=== PATIENT | female | born 1960 | race African-American/Black ===

== ENCOUNTER 2016-04-02 14:53 | Inpatient (IN) | payer OTHER ==
[~2016-04-02] VITALS: Ht 182.9 cm; Wt 76.6 kg
[2016-04-02] MEDS ORDERED: ACETAMINOPHEN 325 MG TAB ONE (15:38)
[2016-04-02] MEDS ORDERED: SODIUM CHLORIDE 0.9% 1,000 ML ONE ×2 (17:43→21:11)
[2016-04-02] MEDS ORDERED: Ibuprofen 600 MG TAB ONE (17:51)
[2016-04-02] MEDS ORDERED: CEFTRIAXONE 1 GM VIAL ONE (18:40)
[2016-04-02] MEDS ORDERED: SODIUM CHLORIDE 0.9% 100 ML IV ONE (18:41)
[2016-04-02] MEDS ORDERED: MAG HYDROX 30 ML UDC PO PRN (23:40)
[2016-04-02] MEDS ORDERED: SALINE FLUSH 10 ML FLUSH PRN (23:40)
[2016-04-02] MEDS ORDERED: BISACODYL EC 5 MG TAB PO PRN (23:40)
[2016-04-02] MEDS ORDERED: ALU/MAG/SIM 30 ML UDC PO PRN (23:40)
[2016-04-02] MEDS ORDERED: BISACODYL 10 MG SUPP RECTAL PRN (23:40)
[2016-04-03] VITALS (8 sets, daily range): BP systolic 94–133; RESP 16; TEMP 97.8–99.5; Ht 182.9 cm; Wt 76.6 kg
[2016-04-03] MEDS: SODIUM CHLORIDE 0.9% 1,000 ML IV SCH ×2 (02:24→23:44)
[2016-04-03] MEDS: SODIUM CHLORIDE 0.9% FLUSH BAG 500 ML IV SCH ×2 (06:00→23:34)
[2016-04-03] MEDS: SALINE FLUSH 10 ML FLUSH SCH ×2 (08:04→20:00)
[2016-04-03] MEDS: FAMOTIDINE 20 MG INJ IV SCH ×2 (08:04→20:22)
[2016-04-03] MEDS: ENOXAPARIN 30 MG/0.3 ML SYR SUBQ SCH (08:05)
[2016-04-03] MEDS: ACETAMINOPHEN 325 MG TAB PO PRN ×3 (08:28→23:45)
[2016-04-03] MEDS ORDERED: MISSING DOSE XX ONE (17:00)
[2016-04-03] MEDS: CEFTRIAXONE 1 GM in SODIUM CHLORIDE 0.9% 50 ML IV SCH (17:12)
[2016-04-03] MEDS: AZITHROMYCIN 500 MG in SODIUM CHLORIDE 0.9% 250 ML IV SCH (17:48)
[2016-04-04] VITALS (8 sets, daily range): BP systolic 118–172; RESP 16; TEMP 98–100.3
[2016-04-04] MEDS: SODIUM CHLORIDE 0.9% 1,000 ML IV SCH (06:26)
[2016-04-04] MEDS: FAMOTIDINE 20 MG INJ IV SCH ×2 (08:12→19:38)
[2016-04-04] MEDS: SALINE FLUSH 10 ML FLUSH SCH ×2 (08:12→19:13)
[2016-04-04] MEDS: CEFTRIAXONE 1 GM in SODIUM CHLORIDE 0.9% 50 ML IV SCH (08:13)
[2016-04-04] MEDS: ACETAMINOPHEN 325 MG TAB PO PRN ×3 (08:13→23:35)
[2016-04-04] MEDS: ENOXAPARIN 30 MG/0.3 ML SYR SUBQ SCH (08:15)
[2016-04-04] MEDS: AZITHROMYCIN 500 MG in SODIUM CHLORIDE 0.9% 250 ML IV SCH (09:09)
[2016-04-04] MEDS: SODIUM CHLORIDE 0.9% FLUSH BAG 500 ML IV SCH (19:39)
[2016-04-05] MEDS: SODIUM CHLORIDE 0.9% 1,000 ML IV SCH ×3 (02:07→20:04)
[2016-04-05 04:19] VITALS: BP_SYST 136; RESP 16; TEMP 100.1
[2016-04-05 07:29] VITALS: BP_SYST 128; RESP 16; TEMP 99.3
[2016-04-05] MEDS: SALINE FLUSH 10 ML FLUSH SCH ×2 (08:00→20:05)
[2016-04-05] MEDS: CEFTRIAXONE 1 GM in SODIUM CHLORIDE 0.9% 50 ML IV SCH (09:14)
[2016-04-05] MEDS: ENOXAPARIN 40 MG/0.4 ML SYR SUBQ SCH (09:15)
[2016-04-05] MEDS: FAMOTIDINE 20 MG INJ IV SCH ×2 (09:15→20:04)
[2016-04-05] MEDS: AZITHROMYCIN 500 MG in SODIUM CHLORIDE 0.9% 250 ML IV SCH (10:01)
[2016-04-05] MEDS: ACETAMINOPHEN 325 MG TAB PO PRN ×2 (10:01→21:01)
[2016-04-05 11:01] VITALS: BP_SYST 133; TEMP 98.9
[2016-04-05] MEDS: HYDROXYCHLOROQUINE 200 MG PO SCH ×2 (12:46→20:04)
[2016-04-05] MEDS: PREDNISONE 5 MG TAB PO SCH (12:47)
[2016-04-05 15:33] VITALS: BP_SYST 128; RESP 16; TEMP 97.7
[2016-04-05 19:00] VITALS: BP_SYST 136; RESP 18; TEMP 98.8
[2016-04-05 23:00] VITALS: BP_SYST 113; RESP 18; TEMP 98.6
[2016-04-06] MEDS: SODIUM CHLORIDE 0.9% FLUSH BAG 500 ML IV SCH (04:11)
[2016-04-06] MEDS: ACETAMINOPHEN 325 MG TAB PO PRN ×2 (05:17→20:21)
[2016-04-06] MEDS: SODIUM CHLORIDE 0.9% 1,000 ML IV SCH ×2 (05:17→14:18)
[2016-04-06 07:44] VITALS: BP_SYST 131; RESP 18; TEMP 98.6
[2016-04-06] MEDS ORDERED: MISSING DOSE XX ONE (08:20)
[2016-04-06] MEDS: SALINE FLUSH 10 ML FLUSH SCH ×2 (08:55→20:21)
[2016-04-06] MEDS: CEFTRIAXONE 1 GM in SODIUM CHLORIDE 0.9% 50 ML IV SCH (08:56)
[2016-04-06] MEDS: FAMOTIDINE 20 MG INJ IV SCH (08:56)
[2016-04-06] MEDS: AZITHROMYCIN 250 MG TAB PO SCH (08:56)
[2016-04-06] MEDS: PREDNISONE 5 MG TAB PO SCH (08:56)
[2016-04-06] MEDS: HYDROXYCHLOROQUINE 200 MG PO SCH (08:56)
[2016-04-06] MEDS: ENOXAPARIN 40 MG/0.4 ML SYR SUBQ SCH (08:57)
[2016-04-06 11:41] VITALS: BP_SYST 140; RESP 18; TEMP 98.3
[2016-04-06 14:59] VITALS: BP_SYST 130; RESP 18; TEMP 97.9
[2016-04-06 19:36] VITALS: BP_SYST 147; RESP 18
[2016-04-06] MEDS: FAMOTIDINE 20 MG TAB PO SCH (20:21)
[2016-04-06 23:27] VITALS: BP_SYST 134; RESP 18; TEMP 98.3
[2016-04-07] VITALS (12 sets, daily range): BP systolic 115–155; RESP 18; TEMP 97.3–98.8
[2016-04-07] MEDS: SODIUM CHLORIDE 0.9% 1,000 ML IV SCH ×3 (00:35→22:51)
[2016-04-07] MEDS: ACETAMINOPHEN 325 MG TAB PO PRN ×2 (00:36→21:31)
[2016-04-07] MEDS: SODIUM CHLORIDE 0.9% FLUSH BAG 500 ML IV SCH (04:59)
[2016-04-07] MEDS: SALINE FLUSH 10 ML FLUSH SCH ×2 (08:00→21:31)
[2016-04-07] MEDS: PREDNISONE 5 MG TAB PO SCH (08:19)
[2016-04-07] MEDS: FAMOTIDINE 20 MG TAB PO SCH ×2 (08:19→21:30)
[2016-04-07] MEDS: CEFTRIAXONE 1 GM in SODIUM CHLORIDE 0.9% 50 ML IV SCH (08:19)
[2016-04-07] MEDS: AZITHROMYCIN 250 MG TAB PO SCH (08:20)
[2016-04-07] MEDS: ENOXAPARIN 40 MG/0.4 ML SYR SUBQ SCH (08:20)
[2016-04-07] MEDS ORDERED: cloNIDine 0.1 MG TAB PO SCH (21:00)
[2016-04-08 03:26] VITALS: BP_SYST 156; RESP 18; TEMP 97.5
[2016-04-08] MEDS: SODIUM CHLORIDE 0.9% FLUSH BAG 500 ML IV SCH (05:52)
[2016-04-08] MEDS: PREDNISONE 5 MG TAB PO SCH (07:54)
[2016-04-08] MEDS: AZITHROMYCIN 250 MG TAB PO SCH (07:55)
[2016-04-08] MEDS: ENOXAPARIN 40 MG/0.4 ML SYR SUBQ SCH (07:55)
[2016-04-08] MEDS: CEFTRIAXONE 1 GM in SODIUM CHLORIDE 0.9% 50 ML IV SCH (07:56)
[2016-04-08] MEDS: ACETAMINOPHEN 325 MG TAB PO PRN (07:56)
[2016-04-08] MEDS: SALINE FLUSH 10 ML FLUSH SCH (07:57)
[2016-04-08] MEDS: FAMOTIDINE 20 MG TAB PO SCH (07:57)
[2016-04-08 08:12] VITALS: BP_SYST 155; RESP 16; TEMP 97.8
[2016-04-08 11:47] VITALS: BP_SYST 155; RESP 16; TEMP 97.8
== END 2016-04-08 13:07 | disposition home or self-care (01) | DRG 545 ==
LOC: ENRESERVTM → ENRESERVDT → ER 14:53 → ENPENDDIS 23:36 → EMR 23:36 → 4THE 04-03 01:16
PROVIDERS: ADMIT Internal Medicine; ATTEND Internal Medicine
DX: M32.9 Systemic lupus erythematosus, unspecified (principal); J18.9 Pneumonia, unspecified organism; N17.9 Acute kidney failure, unspecified; I95.9 Hypotension, unspecified; E87.2 Acidosis; N28.1 Cyst of kidney, acquired; M19.90 Unspecified osteoarthritis, unspecified site; D64.9 Anemia, unspecified
CPT/HCPCS: 36415; 36430; 71010; 71250; 76770; 80048; 80053; 81001; 82550; 82553; 83540; 83605; 83690; 84145; 84439; 84443; 84466; 84484; 85025; 85652; 86038; 86160; 86225; 86850; 86900; 86901; 86923; 87040; 87088; 87804; 94799; 96361; 96365; 96375; 99223; 99233; 99239